=== PATIENT | female | born 1960 | race Two or more races ===

== ENCOUNTER → 2024-07-30 | Outpatient (CLI) | payer MEDICAID, SELFPAY ==
--- NOTE | 2024-07-30 17:00 | XR_ITS ---
Examination: CT abdomen and pelvis without contrast. Coronal 3-D reconstructions. Sagittal 2-D reconstructions. Date and time of exam:July 30, 2024 1717 hours INDICATIONS: Generalized abdominal pain beginning 2 months ago CTDI: vol (mGy): 6.65 DLP: (mGycm): 329 Technique: Axial images of the abdomen have been obtained, 3 mm slice thickness Intravenous contrast material has not been administered. Low dose protocols were performed. One or more of the following dose reduction techniques were used; automated exposure control, adjustment of the mA and/or KV according to patient size, use of iterative reconstruction technique. Findings: No focal liver or splenic lesions Absent gallbladder No biliary tract dilatation No pancreatic or adrenal mass No renal or ureteral calculi, no hydronephrosis Aorta normal size No pericecal inflammatory change No bowel obstruction No diverticulitis Atrophic anteverted uterus No adnexal mass Urinary bladder intact Significant osteopenia Advanced degenerative disc disease L2-L3, L4-L5 Moderate bilateral hip osteoarthritis IMPRESSION: No renal or ureteral calculi, no hydronephrosis, specifically no hydronephrosis lower pole left renal calyces noted on this study as depicted on the abdomen sonogram July 14, 2024
== END | disposition home or self-care (01) ==
PROVIDERS: PCP Nurse Practitioner Family; Referring Provider Nurse Practitioner Family; Visit Provider Nurse Practitioner Family
DX: N13.30 Unspecified hydronephrosis (principal)
CPT/HCPCS: 74176

== ENCOUNTER → 2024-09-14 | Outpatient (CLI) | payer MEDICAID, SELFPAY ==
--- NOTE | 2024-09-14 15:13 | XR_ITS ---
Examination: PA lateral chest 2 views TECHNIQUE: Upright PA lateral chest 2 views Exam date and time: September 14, 2024 at 1555 hours Comparison March 19, 2023 INDICATIONS: Hypertension history chronic shortness of breath 2 years FINDINGS: Normal heart size No pneumonia or pulmonary edema Moderate osteopenia IMPRESSION: No active disease
== END | disposition home or self-care (01) ==
LOC: CDIM 14:57
PROVIDERS: PCP Nurse Practitioner Family; Referring Provider Nurse Practitioner Family; Visit Provider Nurse Practitioner Family
DX: R06.02 Shortness of breath (principal)
CPT/HCPCS: 71046

== ENCOUNTER → 2024-12-17 | Outpatient (CLI) | payer MEDICAID, SELFPAY ==
--- NOTE | 2024-12-17 13:30 | XR_ITS ---
Examination: Screening digital mammography, bilateral Computer aided detection 3-D breast Tomosynthesis, bilateral Date and time of exam: 12/17/2024, 1:40 PM Comparisons: September 2022 Indications: Screening Technique: Nonmagnified MLO, CC views of the breasts to been obtained, reconstructed from 3-D Tomosynthesis images. R2 computer aided detection program utilized for evaluation of suspicious masses and/or abnormal calcifications. 3-D Tomosynthesis images obtained. Technologist: Findings: There are scattered areas of fibroglandular density. No evidence of abnormal masses or suspicious calcifications. Impression: BI-RADS category 1: Negative findings (within normal) Recommend 1 year follow-up mammogram
== END | disposition home or self-care (01) ==
PROVIDERS: PCP Nurse Practitioner Family; Referring Provider Nurse Practitioner Family; Visit Provider Nurse Practitioner Family
DX: Z12.31 Encounter for screening mammogram for malignant neoplasm of breast (principal); R92.313 Mammographic fatty tissue density, bilateral breasts
CPT/HCPCS: 77063; 77067

== ENCOUNTER → 2025-05-24 | Outpatient (CLI) | payer MEDICAID, SELFPAY ==
--- NOTE | 2025-05-24 | XR_ITS ---
Examination: Lumbar spine, 5 views Technique: Lumbar spine AP, lateral, coned lateral lower lumbar spine, bilateral obliques 5 views Exam date and time: May 24, 2025 1112 hours INDICATIONS: Low back pain beginning 10 years ago FINDINGS: Satisfactory alignment lumbar vertebral bodies No lumbar fracture Mild to moderate diffuse lumbar disc are most severe at L4-L5 Intact pedicles No cortical bone destruction IMPRESSION: Mild to moderate diffuse lumbar degenerative disc disease
== END | disposition home or self-care (01) ==
LOC: CDIM 11:10
PROVIDERS: PCP Nurse Practitioner Family; Referring Provider Nurse Practitioner Family; Visit Provider Nurse Practitioner Family
DX: M51.360 Other intervertebral disc degeneration, lumbar region with discogenic back pain only (principal)
CPT/HCPCS: 72110